=== PATIENT | male | born 1960 | race Caucasian/White ===

== ENCOUNTER 2017-10-19 08:29 | Emergency (ER) | payer BC, OTHER ==
[~2017-10-19] VITALS: Ht 180.3 cm; Wt 82.3 kg
[~2017-10-19 08:29] MED LIST: MULT-1085 PO
[2017-10-19] MEDS ORDERED: BUPIVAcaine 0.5% inj/PF 30 ml vial IJ ONE (09:10)
[2017-10-19 11:09] LABS: GLUCOSE,SYNOVIAL FLUID 100 MG/DL
[2017-10-19 11:21] LABS: APPEARANCE,SYNOVIAL FLUID HAZY; COLOR,SYNOVIAL FLUID YELLOW; SYN RBC 151 /CU MM (0); SYN WBC 198 /CU MM (0-200)
[2017-10-19 11:22] LABS: CRYSTAL ID, SYN FLD CA PYROPHOSPHATE; SYNOVIAL FLUID CRYSTALS QT MANY
[2017-10-19 11:34] LABS: TOTAL PROTEIN,SYNOVIAL FLUID 1.3 GM/DL
[2017-10-19 11:55] VITALS: BP 136/87
== END 2017-10-19 11:57 | disposition home or self-care (01) ==
LOC: ER 08:29
DX: M23.91 Unspecified internal derangement of right knee (principal); M25.461 Effusion, right knee
CPT/HCPCS: 20610; 73564; 82945; 84157; 87015; 87070; 87075; 87102; 87116; 87206; 89051; 89060; 99285; A6449; J3490

== ENCOUNTER 2017-10-20 09:07 | Outpatient (CLI) | payer OTHER, BC | END 2017-10-20 23:59 | disposition home or self-care (01) | LOC: RAD 09:07 | PROVIDERS: ATTEND Emergency Medicine | DX: S83.231A Complex tear of medial meniscus, current injury, right knee, initial encounter (principal); M25.461 Effusion, right knee; M22.41 Chondromalacia patellae, right knee; M71.21 Synovial cyst of popliteal space [Baker], right knee; X58.XXXA Exposure to other specified factors, initial encounter; Y93.89 Activity, other specified; Y92.89 Other specified places as the place of occurrence of the external cause; Y99.8 Other external cause status | CPT/HCPCS: 73721 ==

== ENCOUNTER 2018-06-18 06:43 | Day surgery (SDC) | payer OTHER, BC ==
[2018-06-17 10:20] LABS: BASOPHILS % (AUTO) 0.5 % (0-1); EOSINOPHILS # (AUTO) 0.3 X10'3 (0-0.9); EOSINOPHILS % (AUTO) 4.6 % (0-6); LYMPHOCYTES # (AUTO) 1.8 X10'3 (1.1-4.8); LYMPHOCYTES % (AUTO) 29.4 % (21-51); MEAN CORPUSCULAR HEMOGLOBIN 30.4 PG (27.0-31.0); MEAN CORPUSCULAR HGB CONC 34.5 % (33.0-36.5); MEAN CORPUSCULAR VOLUME 87.9 FL (78-98); MEAN PLATELET VOLUME 8.4 FL (7.4-10.4); MONOCYTES # (AUTO) 0.6 X10'3 (0-0.9); MONOCYTES % (AUTO) 9.3 % (2-12); NEUTROPHILS # (AUTO) 3.4 X10'3 (1.8-7.7); NEUTROPHILS % (AUTO) 56.2 % (42-75); PRE OP HEMATOCRIT 45.5 % (42.0-52.0); PRE OP HEMOGLOBIN 15.7 g/dL (14.0-17.9); PRE OP PLATELET COUNT 178 X10'3 (140-440); RED BLOOD COUNT 5.18 X10'6 (4.70-6.10); RED CELL DISTRIBUTION WIDTH 12.8 % (11.5-14.5)
[2018-06-17 10:21] LABS: ALBUMIN/GLOBULIN RATIO 1.2 (1.1-1.5); ALKALINE PHOSPHATASE 65 IU/L (46-116); BLOOD UREA NITROGEN 18 MG/DL (7-18); BUN/CREATININE RATIO 19.4 (5.4-32.0); CALCIUM 9.2 MG/DL (8.5-10.1); CHLORIDE 104 MMOL/L (99-107); CREATININE 0.93 MG/DL (0.60-1.10); PRE OP ALT 40 U/L (30-65); PRE OP ANION GAP 7 (8-16); PRE OP AST 21 U/L (10-37); PRE OP BILIRUB, TOTAL 0.5 MG/DL (0.0-1.0); PRE OP GLUCOSE 94 MG/DL (70-104); PRE OP POTASSIUM 4.3 MMOL/L (3.4-5.1); PRE OP SODIUM 138 MMOL/L (135-145); TOTAL CARBON DIOXIDE 27.5 MMOL/L (24-32); TOTAL PROTEIN 7.3 G/DL (6.4-8.2); eGFR 83 ML/MIN
[2018-06-18] VITALS (13 sets, daily range): BP systolic 133–163; BP diastolic 78–105
[~2018-06-18] VITALS: Ht 177.8 cm; Wt 85.0 kg
[~2018-06-18 06:43] MED LIST changes: +IBUP200C5 PO; -MULT-1085 PO; +famotidine 20mg tablet PO ONE; +ringers solution, lacted 1,000 ML IV SCH
[2018-06-18] MEDS ORDERED: ondansetron/PF 4mg/2ml inj IV PRN (08:05)
[2018-06-18] MEDS ORDERED: meperidine/PF 25mg/ml syringe IV PRN ×2 (08:05)
[2018-06-18] MEDS ORDERED: morphine 4 MG/ML inj SYRINge IV PRN ×2 (08:05)
[2018-06-18] MEDS ORDERED: proCHLORperazine 10 MG/2 ml inj IV PRN (08:05)
[2018-06-18] MEDS ORDERED: ringers solution, lacted 1,000 ML IV SCH (08:05)
[2018-06-18] MEDS ORDERED: sevoflurane 250ml liquid IH ONE (08:36)
[2018-06-18] MEDS ORDERED: dexamethasone sod phosphate 10mg/ml inj ONE (08:36)
[2018-06-18] MEDS ORDERED: ondansetron/PF 4mg/2ml inj ONE (08:36)
[2018-06-18] MEDS ORDERED: fentaNYL/PF 50MCG/1 ML 2ML syringe ONE (08:38)
[2018-06-18] MEDS ORDERED: midazolam 2 mg/2 ml injection ONE (08:38)
[2018-06-18] MEDS ORDERED: cloNIDine hcl/PF 100mcg/ml inj ONE (08:39)
[2018-06-18] MEDS ORDERED: ketorolac trometh. 30mg/ml inj. ONE (08:48)
[2018-06-18] MEDS ORDERED: propofol inj 20 ML IV ONE (08:48)
[2018-06-18] MEDS ORDERED: LIDOcaine 1%/PF 5ML 10 MG/ML VIAL ONE (08:48)
--- NOTE | 2018-06-18 09:23 | NUR ---
Received from OR via [facility], accompanied by Anesthesiologist AKIL and report given by Anesthesiolgist. PATIENT WITH 20G PIV IN LEFT UE RUNNING LR AT 100. C.O PAIN UPON ARRIVAL. MEDICATED FOR THIS AND ELEVATED RIGHT LE ON [employer]. SPLINT TO RIGHT LE FROM TOE TO UPPER THIGH. + SENSATION TO TOES. VSS Addendum: 06/18/18 at 0939 by Anthony Raya RN, RN Amended: Links added.
[2018-06-18] MEDS: meperidine/PF 25mg/ml syringe IV PRN ×3 (09:42→10:37)
[2018-06-18] MEDS ORDERED: acetaminophen 1,000mg/100ml IV 100 ML IV SCH (09:54)
--- NOTE | 2018-06-18 11:13 | NUR ---
ALL DC CRITERIA HAS BEEN MET. IV OUT WITHOUT COMPLICATIONS. PAIN AT A TOLERABLE LEVEL AT THIS TIME. ASSISTED INTO VEHICLE WHERE LEG ELEVATED AND PATIENT SECURED VIA SEAT BELT IN BACK EMULSIFICATION OPERATOR SIDE SEAT. Addendum: 06/18/18 at 1138 by Anthony Raya RN, RN Amended: Links added.
== END 2018-06-18 11:13 | disposition home or self-care (01) ==
LOC: PAS 06:43
PROVIDERS: ATTEND Orthopaedic Surgery
DX: M24.661 Ankylosis, right knee (principal); M24.561 Contracture, right knee; Z87.891 Personal history of nicotine dependence; Z98.52 Vasectomy status; Z98.890 Other specified postprocedural states
CPT/HCPCS: 27570; 36415; 80053; 82948; 85025; J0131; J0735; J1100; J1885; J2001; J2175; J2250; J2270; J2405; J2704; J3010; J7120

== ENCOUNTER 2019-06-11 08:59 | Emergency (ER) | payer OTHER, BC ==
[~2019-06-11] VITALS: Ht 180.3 cm; Wt 83.2 kg
[~2019-06-11 08:59] MED LIST changes: -famotidine 20mg tablet PO ONE; -ringers solution, lacted 1,000 ML IV SCH
[2019-06-11 09:24] VITALS: BP 140/74
== END 2019-06-11 11:00 | disposition home or self-care (01) ==
LOC: ER 09:00
DX: T75.89XA Other specified effects of external causes, initial encounter (principal); Y92.89 Other specified places as the place of occurrence of the external cause
CPT/HCPCS: 71045; 99283

== ENCOUNTER 2019-11-04 06:19 | Outpatient (CLI) | payer OTHER, BC ==
[2019-11-04 06:54] LABS: EOSINOPHILS # (AUTO) 0.3 X10'3 (0-0.9); LYMPHOCYTES # (AUTO) 1.7 X10'3 (1.1-4.8); MONOCYTES # (AUTO) 0.5 X10'3 (0-0.9); NEUTROPHILS # (AUTO) 2.9 X10'3 (1.8-7.7)
[2019-11-04 06:56] LABS: BASOPHILS % (AUTO) 0.9 % (0-1); EOSINOPHILS % (AUTO) 5.2 % (0-6); HEMATOCRIT 43.8 % (42.0-52.0); HEMOGLOBIN 14.8 g/dl (14.0-17.9); LYMPHOCYTES % (AUTO) 31.2 % (21-51); MEAN CORPUSCULAR HEMOGLOBIN 30.6 PG (27.0-31.0); MEAN CORPUSCULAR HGB CONC 33.9 g/dL (33.0-36.5); MEAN CORPUSCULAR VOLUME 90.4 FL (78-98); MEAN PLATELET VOLUME 8.3 FL (7.4-10.4); MONOCYTES % (AUTO) 9.5 % (2-12); NEUTROPHILS % (AUTO) 53.2 % (42-75); PLATELET COUNT 168 X10'3 (140-440); RED BLOOD COUNT 4.85 X10'6 (4.70-6.10); RED CELL DISTRIBUTION WIDTH 13.3 % (11.5-14.5); WHITE BLOOD COUNT 5.5 X10'3 (4.5-11.0)
[2019-11-04 07:24] LABS: ALANINE AMINOTRANSFERASE 33 U/L (12-78); ALBUMIN 3.9 G/DL (3.4-5.0); ALBUMIN/GLOBULIN RATIO 1.3 (1.1-1.5); ALKALINE PHOSPHATASE 70 IU/L (46-116); ANION GAP 11 (8-16); ASPARTATE AMINO TRANSFERASE 19 U/L (10-37); BILIRUBIN,TOTAL 0.4 MG/DL (0.1-1.0); BLOOD UREA NITROGEN 21 MG/DL (7-18); CALCIUM 8.6 MG/DL (8.5-10.1); CHLORIDE 111 MMOL/L (99-107); CHOL/HDL RATIO 3.9 (0.00-4.99); CHOLESTEROL 165 MG/DL (0-200); CREATININE 1.05 MG/DL (0.60-1.10); GLUCOSE 106 MG/DL (70-104); HDL CHOLESTEROL 42 MG/DL (35-60); LDL CHOLESTEROL 100 MG/DL (50-100); POTASSIUM 3.9 MMOL/L (3.5-5.1); SODIUM 146 MMOL/L (135-145); TOTAL CARBON DIOXIDE 24.3 MMOL/L (24-32); TOTAL PROTEIN 6.8 G/DL (6.4-8.2); TRIGLYCERIDES 95 MG/DL (20-135); eGFR 72 ML/MIN
[2019-11-04 08:44] LABS: CLARITY,URINE CLEAR (Clear); COLOR,URINE YELLOW (Yellow); GLUCOSE, URINE NEGATIVE (Neg); KETONES,URINE NEGATIVE (Neg); LEUKOCYTE ESTERASE ,URINE NEGATIVE (Neg); NITRITES, URINE NEGATIVE (Neg); OCCULT BLOOD,URINE NEGATIVE (Neg); PROTEIN,URINE NEGATIVE (Neg); UROBILINOGEN,URINE 0.2 E.U/dL (0.2-1.0)
[2019-11-04 08:58] LABS: UA COLLECTION TYPE NON-SPECIFIED
== END 2019-11-04 23:59 | disposition home or self-care (01) ==
LOC: LAB 06:19
PROVIDERS: ATTEND Family Medicine
DX: Z00.00 Encounter for general adult medical examination without abnormal findings (principal)
CPT/HCPCS: 36415; 80053; 80061; 81003; 84439; 84443; 85025

== ENCOUNTER 2020-10-08 08:20 | Emergency (ER) | payer BC ==
[~2020-10-08] VITALS: Ht 180.3 cm; Wt 81.4 kg
[2020-10-08 08:37] VITALS: BP 125/79
[2020-10-08] MEDS ORDERED: LIDOcaine 1% 30ml preserv. free vial IJ ONE (09:30)
[2020-10-08] MEDS ORDERED: CEPH-585 PO (10:05)
== END 2020-10-08 10:19 | disposition home or self-care (01) ==
LOC: EEVIPCON 08:20 → ER 08:20
DX: S60.042A Contusion of left ring finger without damage to nail, initial encounter (principal); Z79.899 Other long term (current) drug therapy; W22.8XXA Striking against or struck by other objects, initial encounter; Y93.89 Activity, other specified; Y92.89 Other specified places as the place of occurrence of the external cause; Y99.8 Other external cause status
CPT/HCPCS: 11740; 73140; 99284

== ENCOUNTER 2021-10-08 08:58 | Outpatient (CLI) | payer BC ==
[2021-10-08 09:55] LABS: CLARITY,URINE SLIGHTLY CLOUDY (Clear); COLOR,URINE YELLOW (Yellow); GLUCOSE, URINE NEGATIVE (Neg); KETONES,URINE NEGATIVE (Neg); LEUKOCYTE ESTERASE ,URINE NEGATIVE (Neg); NITRITES, URINE NEGATIVE (Neg); OCCULT BLOOD,URINE NEGATIVE (Neg); PROTEIN,URINE NEGATIVE (Neg); UROBILINOGEN,URINE 0.2 E.U/dL (0.2-1.0)
[2021-10-08 09:56] LABS: BASOPHILS % (AUTO) 0.8 % (0-1); EOSINOPHILS # (AUTO) 0.2 X10'3 (0-0.9); EOSINOPHILS % (AUTO) 3.1 % (0-6); HEMATOCRIT 45.2 % (42.0-52.0); HEMOGLOBIN 15.3 g/dl (14.0-17.9); LYMPHOCYTES # (AUTO) 1.3 X10'3 (1.1-4.8); LYMPHOCYTES % (AUTO) 26.2 % (21-51); MEAN CORPUSCULAR HEMOGLOBIN 30.2 PG (27.0-31.0); MEAN CORPUSCULAR HGB CONC 33.9 g/dL (33.0-36.5); MEAN PLATELET VOLUME 8.3 FL (7.4-10.4); MONOCYTES # (AUTO) 0.5 X10'3 (0-0.9); NEUTROPHILS # (AUTO) 3.1 X10'3 (1.8-7.7); NEUTROPHILS % (AUTO) 60.9 % (42-75); PLATELET COUNT 169 X10'3 (140-440); RED BLOOD COUNT 5.08 X10'6 (4.70-6.10); RED CELL DISTRIBUTION WIDTH 13.4 % (11.5-14.5)
[2021-10-08 09:57] LABS: UA COLLECTION TYPE VOIDED
[2021-10-08 10:04] LABS: HEMOGLOBIN A1C 5.6 % (4.5-6.2); MUCUS STRANDS MANY /LPF (Neg); SQUAMOUS EPITHELIAL CELL,UR FEW /LPF (FEW)
[2021-10-08 10:05] LABS: BACTERIA,URINE FEW /HPF (Neg); CAL OXALATE CRYSTALS 1+ /HPF (NEGATIVE); RBC,URINE 0-2 /HPF (0-2); WBC,URINE 0-4 /HPF (0-4)
[2021-10-08 13:22] LABS: ALANINE AMINOTRANSFERASE 22 U/L (12-78); ALBUMIN 3.9 G/DL (3.4-5.0); ALBUMIN/GLOBULIN RATIO 1.3 (1.1-1.5); ALKALINE PHOSPHATASE 65 IU/L (46-116); ANION GAP 7 (8-16); ASPARTATE AMINO TRANSFERASE 12 U/L (10-37); BILIRUBIN,TOTAL 0.4 MG/DL (0.1-1.0); BLOOD UREA NITROGEN 21 MG/DL (7-18); BUN/CREATININE RATIO 20.4 (5.4-32.0); CALCIUM 8.6 MG/DL (8.5-10.1); CHLORIDE 108 MMOL/L (99-107); CHOL/HDL RATIO 2.8 (0.00-4.99); CHOLESTEROL 183 MG/DL (0-200); CREATININE 1.03 MG/DL (0.60-1.10); GLUCOSE 103 MG/DL (70-104); HDL CHOLESTEROL 65 MG/DL (35-60); LDL CHOLESTEROL 94 MG/DL (50-100); POTASSIUM 4.4 MMOL/L (3.5-5.1); SODIUM 141 MMOL/L (135-145); TOTAL CARBON DIOXIDE 25.9 MMOL/L (24-32); TRIGLYCERIDES 59 MG/DL (20-135); eGFR 73 ML/MIN
== END 2021-10-08 23:59 | disposition home or self-care (01) ==
LOC: LAB 08:58
PROVIDERS: ATTEND Family Medicine
DX: Z00.00 Encounter for general adult medical examination without abnormal findings (principal)
CPT/HCPCS: 36415; 80053; 80061; 81001; 82043; 82570; 83036; 84439; 84443; 85025

== ENCOUNTER 2021-12-13 14:28 | Outpatient (CLI) | payer BC | END 2021-12-13 23:59 | disposition home or self-care (01) | LOC: CARD DIAG 14:28 | PROVIDERS: ATTEND Internal Medicine Interventional Cardiology | DX: I05.8 Other rheumatic mitral valve diseases (principal); R94.31 Abnormal electrocardiogram [ECG] [EKG] | CPT/HCPCS: 93306 ==

== ENCOUNTER 2022-05-29 11:13 | Day surgery (SDC) | payer BC ==
[~2022-05-29] VITALS: Ht 180.3 cm; Wt 75.0 kg
[2022-05-29 11:30] VITALS: BP 133/84
[2022-05-29] MEDS ORDERED: FENTANYL CITRATE/PF 50 MCG/1 ML VIAL ONE (11:55)
[2022-05-29] MEDS ORDERED: MIDAZolam 1 MG/ML 5ML VIAL ONE (11:56)
[2022-05-29 12:40] VITALS: BP 110/57
[2022-05-29 12:50] VITALS: BP 94/54
[2022-05-29 13:00] VITALS: BP 96/45
[2022-05-29 13:10] VITALS: BP 132/76
== END 2022-05-29 13:20 | disposition home or self-care (01) ==
LOC: GI LAB 11:13
PROVIDERS: ATTEND Internal Medicine Gastroenterology
DX: Z12.11 Encounter for screening for malignant neoplasm of colon (principal); K64.8 Other hemorrhoids; K63.89 Other specified diseases of intestine
CPT/HCPCS: 45381; 99152; J2250; J3010; J7030; Z7512; 45378; 99153; A4620